=== PATIENT | female | born 1985 | race Caucasian/White ===

== ENCOUNTER 2016-11-13 10:56 | Emergency (ER) | payer MEDICAID ==
[2016-11-13 11:11] VITALS: BP 109/62; PULSE 78; RESP 18; TEMP 98; O2SAT 97
--- NOTE | 2016-11-13 12:22 | UCPHY ---
H & P Time Seen by Provider: 11/13/16 12:21 Patient Type: Established HPI/ROS: Chief complaint. Rib pain HPI. 31-year-old female cough last night while lying in bed and felt pop in the right mid back. It hurts to take deep breath it hurts to twist. She has had previous rib fracture from coughing. She has a resolving upper respiratory infection. No unusual leg pain or swelling. No fever ROS Constitutional. no fever/chills, no weakness Eyes. no problems with vision ENT. no sore throat, no nasal drainage Cardiovascular. no chest pain Respiratory. no shortness of breath, no cough Abdominal. no abdominal pain, no nausea/vomiting, no diarrhea . no problems urinating MS. Right back pain Skin. no rash Lymph. no swollen glands Neuro. no headache, no dizziness, no difficulty walking or with speech Past Medical/Surgical History: Previous rib fracture, migraines , Social History: Single, nonsmoker, no alcohol Smoking Status: Never smoked Physical Exam: General Appearance: Alert well-developed female mild distress vital signs stable Eyes: Pupils equal and round no pallor or injection. ENT, Mouth: Mucous membranes are moist. Respiratory: There are no retractions, lungs are clear to auscultation. Cardiovascular: Regular rate and rhythm. Gastrointestinal: Abdomen is soft and nontender, no masses, bowel sounds normal. Neurological: Awake and alert, sensory and motor exams grossly normal. Skin: Warm and dry, no rashes. Musculoskeletal: Neck is supple nontender. Tenderness to the medial scapular area at approximately T6-T7. Extremities symmetrical, full range of motion. Psychiatric: Patient is oriented X 3, there is no agitation. Constitutional: Initial Vital Signs Temperature (C) 36.6 C 11/13/16 11:09 Heart Rate 78 11/13/16 11:09 Respiratory Rate 18 11/13/16 11:09 Blood Pressure 109/62 11/13/16 11:09 O2 Sat (%) 97 11/13/16 11:09 O2 Delivery Mode Room Air Allergies/Adverse Reactions: No Known Allergies Allergy (Verified 11/06/14 12:59) Home Medications: Medication Instructions Recorded Hydrocodone/APAP 5/325 [[place] 1 each PO Q4-6PRN PRN #14 tab 11/13/16 5/325 (*)] Medical Decision Making - Diagnostics Imaging: Chest x-ray interpreted by me shows no evidence for rib fracture or pneumothorax ED Course/Re-evaluation: Re-evaluation patient is stable. Patient discussed treatment plan including criteria for return importance of follow-up further evaluation. She expresses understanding and agreement Differential Diagnosis: I considered rib fracture, pneumothorax, muscular etiology Departure - Departure Disposition: Home, Routine, Self-Care Clinical Impression: Thoracic back pain Qualifiers: Chronicity: acute Back pain laterality: right Qualified Code(s): M54.6 - Pain in thoracic spine Condition: Good Instructions: Back Pain (ED) Additional Instructions: Ice to sore area next 24 hours. Ibuprofen 400-600 mg every 6 hours for discomfort. Hydrocodone in addition. Return for worsening symptoms. Recheck in 3-4 days if not improving Referrals: [facility],. [Primary Care Provider] - 3-4 days, if not improved Prescriptions: Hydrocodone/APAP 5/325 [[place] 5/325 (*)] 1 each PO Q4-6PRN PRN #14 tab PRN Reason: Pain, Moderate - PQRS PQRS Measurement: 134: Depression screening and followup, PRIME MD-PHQ2 (12 years and older) Over the last 2 weeks, how often have you been bothered by any of the following problems? 1. Feeling down, depressed, or hopeless? 2. Little interest or pleasure in doing things? Patient answered no to both 1 and 2 Patie 130: Documentation of medications. Reviewed all patient medications, doses, route and frequency. 226: Do you smoke? [No.
== END 2016-11-13 12:44 | disposition home or self-care (01) ==
LOC: CED 10:56
DX: M54.6 Pain in thoracic spine (principal); R07.1 Chest pain on breathing
CPT/HCPCS: 71020-PO; 99214-PO; G0463-PO